=== PATIENT | female | born 1980 | race Caucasian/White ===

== ENCOUNTER 2018-11-20 08:27 | Emergency (ER) | payer OTHER ==
[2018-11-20] MEDS ORDERED: IBUPROFEN 600 MG TAB PO ONE (08:44)
--- NOTE | 2018-11-20 08:44 | EDPHY ---
H & P Time Seen by Provider: 11/20/18 08:42 HPI/ROS: CHIEF COMPLAINT: Foot injury HISTORY OF PRESENT ILLNESS: Slipped yesterday fell twisting her right foot today presents with pain on the lateral side. REVIEW OF SYSTEMS: No knee or leg symptoms, no ankle symptoms, no skin laceration PAST MEDICAL HISTORY: Negative Social history: Nonsmoker General Appearance: Alert and conversant, cooperative. Normal range of motion of the knee. Normal tib-fib, nontender, compartment soft. Ankle and nontender including lateral and medial malleolus, Achilles nontender. Ankle joint stable. Foot has normal motor sensory and dorsalis pedis pulse. Tenderness laterally over the base of the 5th metatarsal. Emergency Department course/MDM: Oral ibuprofen, foot x-ray discussed and consented. 920: X-rays reviewed with the patient, negative, hard shoe and/or crutches, orthopedic referral. Smoking Status: Never smoked Constitutional: Initial Vital Signs Temperature (C) 36.4 C 11/20/18 08:31 Heart Rate 77 11/20/18 08:31 Respiratory Rate 16 11/20/18 08:31 Blood Pressure 119/76 11/20/18 08:31 O2 Sat (%) 100 11/20/18 08:31 O2 Delivery Mode Room Air Allergies/Adverse Reactions: No Known Allergies Allergy (Verified 11/20/18 08:31) MDM/Departure - MDM Imaging Results: Imaging Impressions Foot X-Ray 11/20/18 08:44 Impression: 1. No acute fracture of the right foot. 2. 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 Negative x-ray personally interpreted of the right foot. Imaging: I viewed and interpreted images myself Medications Given: Discontinued Medications Ibuprofen (Motrin) 600 mg PO EDNOW ONE Stop: 11/20/18 08:45 Last Admin: 11/20/18 08:49 Dose: 600 mg - Depart Disposition: Home, Routine, Self-Care Clinical Impression: Right foot sprain Qualifiers: Encounter type: initial encounter Qualified Code(s): S93.601A - Unspecified sprain of right foot, initial encounter Condition: Good Instructions: Foot Sprain (ED) Additional Instructions: Activity as tolerated. Referrals: Hilary Robert MD [Primary Care Provider] - As per Instructions Hemant Wallace MD [Medical Doctor] - 5-7 days, if not improved
[2018-11-20 09:36] VITALS: BP 119/75
== END 2018-11-20 09:39 | disposition home or self-care (01) ==
DX: S93.601A Unspecified sprain of right foot, initial encounter (principal); W01.0XXA Fall on same level from slipping, tripping and stumbling without subsequent striking against object, initial encounter
CPT/HCPCS: L4386